=== PATIENT | female | born 2000 | race Caucasian/White ===

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

== ENCOUNTER 2019-12-09 19:18 | Emergency (ER) | payer MEDICAID ==
--- NOTE | 2019-12-09 19:52 | EDM.PDOC ---
ED HPI GENERAL MEDICAL PROBLEM - General Chief Complaint: Abdominal Pain Stated Complaint: LOWER ABD PAIN Time Seen by Provider: 12/09/19 19:30 Source of Information: Reports: Patient (Consult) History Limitations: Reports: No Limitations - History of Present Illness INITIAL COMMENTS - FREE TEXT/NARRATIVE: 19-year-old female with lower abdominal pain since this morning, slowly worsening. No significant dysuria, no radiation to the back. Pain is low, suprapubic and right lower quadrant. Denies any diarrhea or nausea vomiting, no fevers. No trauma or previous pain similar. She is near to having her period, she is regular and had a normal period 3 weeks ago. Onset: Gradual Duration: Hour(s): (12 hours) Location: Reports: Abdomen (Lower abdomen, suprapubic and right lower quadrant) Associated Symptoms: Reports: No Other Symptoms pelvic Pain Score (Numeric/FACES): 5 - Related Data Allergies Allergy/AdvReac Type Severity Reaction Status Date / Time No Known Allergies Allergy Verified 12/09/19 19:34 Home Meds: Home Meds Insulin Aspart [NovoLOG] 1 units SQ ASDIRECTED 06/11/18 [History] Insulin Glarg,Human.Rec.Analog [Lantus] 36 units SQ BEDTIME 06/11/18 [History] Past Medical History HEENT History: Reports: Cataract, Impaired Vision Genitourinary History: Reports: Renal Disease Musculoskeletal History: Reports: Fracture Other Musculoskeletal History: pelvic fracture when 3 Neurological History: Reports: Migraines Endocrine/Metabolic History: Reports: Diabetes, Type I - Past Surgical History HEENT Surgical History: Reports: Cataract Surgery Social & Family History - Tobacco Use Smoking Status *Q: Never Smoker - Caffeine Use Caffeine Use: Reports: Soda - Recreational Drug Use Recreational Drug Use: No ED ROS GENERAL - Review of Systems Review Of Systems: See Below Constitutional: Denies: Fever, Chills HEENT: Reports: No Symptoms Respiratory: Reports: No Symptoms Cardiovascular: Reports: No Symptoms GI/Abdominal: Reports: Abdominal Pain. Denies: Constipation, Diarrhea, Nausea, Vomiting : Reports: No Symptoms Neurological: Reports: No Symptoms ED EXAM, GI/ABD - Physical Exam Exam: See Below Exam Limited By: No Limitations General Appearance: Alert, No Apparent Distress Eyes: Bilateral: Normal Appearance (No jaundice) Respiratory/Chest: No Respiratory Distress, Lungs Clear Cardiovascular: Regular Rate, Rhythm GI/Abdominal Exam: Tender (Patient is tender to palpation in the right lower quadrant and suprapubic area, no distention. She has mild guarding and equivocal rebound tenderness) Neurological: Alert, Oriented Course - Vital Signs Last Recorded V/S: Last Vital Signs Temp 97.0 F 12/09/19 19:35 Pulse 104 H 12/09/19 19:35 Resp 20 12/09/19 19:35 BP 106/70 12/09/19 19:35 Pulse Ox 99 12/09/19 19:35 - Orders/Labs/Meds Labs: Laboratory Tests 12/09/19 12/09/19 12/09/19 Range/Units 19:43 19:48 19:55 WBC 11.6 H (4.5-11.0) K/uL RBC 4.18 (3.30-5.50) M/uL Hgb 14.0 (12.0-15.0) g/dL Hct 40.9 (36.0-48.0) % MCV 98 (80-98) fL MCH 34 H (27-31) pg MCHC 34 (32-36) % Plt Count 350 (150-400) K/uL Neut % (Auto) 62 (36-66) % Lymph % (Auto) 27 (24-44) % [place] % (Auto) 8 H (2-6) % Eos % (Auto) 2 (2-4) % Baso % (Auto) 1 (0-1) % Sodium (140-148) mmol/L Potassium (3.6-5.2) mmol/L Chloride (100-108) mmol/L Carbon Dioxide (21-32) mmol/L Anion Gap (5.0-14.0) mmol/L BUN (7-18) mg/dL Creatinine (0.6-1.0) mg/dL Est Cr Clr Drug Dosing mL/min Estimated GFR (MDRD) (>60) Glucose (74-106) mg/dL Calcium (8.5-10.1) mg/dL Urine Color Yellow (YELLOW) Urine Appearance Slightly cloudy A (CLEAR) Urine pH 7.0 (5.0-8.0) Ur Specific [place] 1.025 (1.008-1.030) Urine Protein 100 H (NEGATIVE) mg/dL Urine Glucose (UA) Negative (NEGATIVE) mg/dL Urine Ketones Negative (NEGATIVE) mg/dL Urine Occult Blood Small H (NEGATIVE) Urine Nitrite Negative (NEGATIVE) Urine Bilirubin Negative (NEGATIVE) Urine Urobilinogen 0.2 (0.2-1.0) EU/dL Ur Leukocyte Esterase Negative (NEGATIVE) Urine RBC 0-5 (0-5) Urine WBC 0-5 (0-5) Ur Epithelial Cells Moderate Amorphous Sediment Not seen Urine Bacteria Few Urine Mucus Few Urine HCG, Qual Negative 12/09/19 Range/Units 19:55 WBC (4.5-11.0) K/uL RBC (3.30-5.50) M/uL Hgb (12.0-15.0) g/dL Hct (36.0-48.0) % MCV (80-98) fL MCH (27-31) pg MCHC (32-36) % Plt Count (150-400) K/uL Neut % (Auto) (36-66) % Lymph % (Auto) (24-44) % [place] % (Auto) (2-6) % Eos % (Auto) (2-4) % Baso % (Auto) (0-1) % Sodium 135 L (140-148) mmol/L Potassium 3.6 (3.6-5.2) mmol/L Chloride 97 L (100-108) mmol/L Carbon Dioxide 27 (21-32) mmol/L Anion Gap 14.6 H (5.0-14.0) mmol/L BUN 11 (7-18) mg/dL Creatinine 0.6 (0.6-1.0) mg/dL Est Cr Clr Drug Dosing 118.29 mL/min Estimated GFR (MDRD) > 60 (>60) Glucose 174 H (74-106) mg/dL Calcium 9.1 (8.5-10.1) mg/dL Urine Color (YELLOW) Urine Appearance (CLEAR) Urine pH (5.0-8.0) Ur Specific [place] (1.008-1.030) Urine Protein (NEGATIVE) mg/dL Urine Glucose (UA) (NEGATIVE) mg/dL Urine Ketones (NEGATIVE) mg/dL Urine Occult Blood (NEGATIVE) Urine Nitrite (NEGATIVE) Urine Bilirubin (NEGATIVE) Urine Urobilinogen (0.2-1.0) EU/dL Ur Leukocyte Esterase (NEGATIVE) Urine RBC (0-5) Urine WBC (0-5) Ur Epithelial Cells Amorphous Sediment Urine Bacteria Urine Mucus Urine HCG, Qual Meds: Medications Discontinued Medications Generic Name Dose Route Start Last Admin Trade Name Corinna PRN Reason Stop Dose Admin Ketorolac Tromethamine 60 mg 12/09/19 21:25 12/09/19 21:40 Toradol IM 12/09/19 21:26 60 mg ONETIME ONE Administration - Re-Assessments/Exams Free Text/Narrative Re-Assessment/Exam: 12/09/19 19:51 A urine was obtained, a UA and urine will be ordered. Also a CBC and BMP. If UA is negative and urine is negative, imaging will have to be considered. 12/09/19 20:18 Urine has a few RBCs, otherwise negative. Urine is negative. White count is mildly elevated at 11,600, CT of the abdomen pelvis without contrast was ordered. 12/09/19 21:25 IMPRESSION: No evidence of gross appendicitis, diverticulitis or bowel obstruction. No obstructive uropathy or discrete urolithiasis. Mild bladder wall thickening. Correlate with urinalysis to exclude a UTI. Small pelvic free fluid which could be physiologic. Atrophic pancreas. Correlate clinically. Focal induration in the anterior right abdominal wall subcutaneous fat, nonspecific. Correlate with physical exam. 12/09/19 21:25 Patient was given 60 mg of IM Toradol and asked to use anti-inflammatories for the next 48 hours, and follow-up with her primary care if not improving. Departure - Departure Time of Disposition: 21:55 Disposition: Home, Self-Care 01 Clinical Impression: Lower abdominal pain - Discharge Information Instructions: Abdominal Pain, Adult, [id number] Referrals: PCP,None [Primary Care Provider] - Forms: ED Department Discharge Care Plan Goals: Advance diet as tolerated and try a regular dose of naproxen or ibuprofen for the next 48 hours. Return if worsening, especially if you develop fever or worsening pain despite pain medication. Sepsis Event Note - Evaluation Sepsis Screening Result: No Definite Risk - Focused Exam Vital Signs: Vital Signs Temp Pulse Resp BP Pulse Ox 12/09/19 19:35 97.0 F 104 H 20 106/70 99 Date Exam was Performed: 12/09/19 Time Exam was Performed: 23:33
--- NOTE | 2019-12-09 21:19 | CRLCT ---
INDICATION: Lower abdominal pain TECHNIQUE: CT abdomen and pelvis without contrast. COMPARISON: None available FINDINGS: Lower chest: Unremarkable. Liver: A 9 x 5 mm ovoid low-density focus adjacent to the gallbladder fundus which could represent a gallbladder Phrygian cap or a hepatic cyst. Spleen: Unremarkable. Pancreas: Atrophic pancreatic parenchyma. Gallbladder and bile ducts: Unremarkable. Adrenal glands: Unremarkable. Kidneys: Unremarkable. No kidney or ureteral stones and no hydronephrosis. GI tract: No bowel obstruction. The appendix is not significantly abnormally dilated and there are no periappendiceal changes. No significant pericolonic changes. Vascular structures: Unremarkable. Lymph nodes: Unremarkable. Miscellaneous: Small free fluid in the cul-de-sac. No free air. Focal induration in the anterior right abdominal subcutaneous fat, nonspecific. Pelvic Organs: Possible arcuate uterine morphology. Mild bladder wall thickening versus incomplete distention. Bones: Unremarkable for age. IMPRESSION: No evidence of gross appendicitis, diverticulitis or bowel obstruction. No obstructive uropathy or discrete urolithiasis. Mild bladder wall thickening. Correlate with urinalysis to exclude a UTI. Small pelvic free fluid which could be physiologic. Atrophic pancreas. Correlate clinically. Focal induration in the anterior right abdominal wall subcutaneous fat, nonspecific. Correlate with physical exam. Dictated by Juan David Mendez MD @ 12/09/2019 9:14:04 PM Please note that all CT scans at this facility use dose modulation, iterative reconstruction, and/or weight-based dosing when appropriate to reduce radiation dose to as low as reasonably achievable. Dictated by: Juan David Mendez MD @ 12/09/2019 21:18:04 (Electronically Signed)
[2019-12-09] MEDS ORDERED: Ketorolac 60 MG/2 ML SDV IM ONE (21:25)
== END 2019-12-09 21:55 | disposition home or self-care (01) ==
LOC: JP.ED 19:18
DX: R10.31 Right lower quadrant pain (principal); E10.36 Type 1 diabetes mellitus with diabetic cataract; Z79.4 Long term (current) use of insulin
CPT/HCPCS: 36415; 74176; 80048; 81001; 81025; 85025; 96372; 99284; J1885